=== PATIENT | female | born 1975 | race Caucasian/White ===

== ENCOUNTER 2017-04-28 14:55 | Emergency (ER) | payer MEDICARE, MEDICAID ==
[~2017-04-28] VITALS: Ht 162.6 cm; Wt 100.0 kg
[~2017-04-28 14:55] MED LIST: ATI1T PO; DIPH-423 PO; GABA300C PO; LITH150C8 PO; LURA60TA2 PO; NICO-687 TD; PANT-47 PO; PRAZ1CAP5 PO; TRAZ150T78 PO
[2017-04-28] MEDS ORDERED: ondansetron 4mg rapidly disintigrating tab PO STA (15:08)
[2017-04-28] MEDS ORDERED: LIDOcaine Viscous 15ml cup PO ONE (15:10)
[2017-04-28] MEDS ORDERED: sucralfate 1 gm tablet PO ONE (15:10)
[2017-04-28] MEDS ORDERED: mag hydrox/Alum hydrox/simeth 30ml oral suspension PO ONE (15:10)
[2017-04-28 15:30] LABS: BASOPHILS # (AUTO) 0.1 X10'3 (0-0.2); BASOPHILS % (AUTO) 0.6 % (0-1); EOSINOPHILS # (AUTO) 0.2 X10'3 (0-0.9); EOSINOPHILS % (AUTO) 1.2 % (0-6); HEMATOCRIT 44.1 % (35.0-45.0); HEMOGLOBIN 15.3 g/dl (12.0-16.0); LYMPHOCYTES # (AUTO) 2.5 X10'3 (1.1-4.8); LYMPHOCYTES % (AUTO) 18.9 % (21-51); MEAN CORPUSCULAR HEMOGLOBIN 32.4 PG (27.0-31.0); MEAN CORPUSCULAR HGB CONC 34.7 % (33.0-36.5); MEAN CORPUSCULAR VOLUME 93.4 FL (78-98); MEAN PLATELET VOLUME 7.5 FL (7.4-10.4); MONOCYTES # (AUTO) 1.3 X10'3 (0-0.9); MONOCYTES % (AUTO) 9.6 % (2-12); NEUTROPHILS # (AUTO) 9.1 X10'3 (1.8-7.7); NEUTROPHILS % (AUTO) 69.7 % (42-75); PLATELET COUNT 316 X10'3 (140-440); RED BLOOD COUNT 4.72 X10'6 (4.20-5.60); RED CELL DISTRIBUTION WIDTH 15.3 % (11.5-14.5); WHITE BLOOD COUNT 13.1 X10'3 (4.5-11.0)
[2017-04-28 15:33] LABS: CLARITY,URINE CLEAR (Clear); COLOR,URINE STRAW (Yellow); GLUCOSE, URINE NEGATIVE (Neg); KETONES,URINE NEGATIVE (Neg); LEUKOCYTE ESTERASE ,URINE NEGATIVE (Neg); NITRITES, URINE NEGATIVE (Neg); OCCULT BLOOD,URINE NEGATIVE (Neg); PROTEIN,URINE NEGATIVE (Neg); UROBILINOGEN,URINE 0.2 E.U/dL (0.2-1.0)
[2017-04-28 15:36] LABS: UA COLLECTION TYPE CLN CATCH MIDSTREAM
[2017-04-28 15:46] LABS: ALANINE AMINOTRANSFERASE 18 U/L (12-78); ALBUMIN 3.8 G/DL (3.4-5.0); ALKALINE PHOSPHATASE 119 IU/L (46-116); ANION GAP 11 (8-16); ASPARTATE AMINO TRANSFERASE 14 U/L (10-37); BILIRUBIN,TOTAL 0.4 MG/DL (0.1-1.0); BLOOD UREA NITROGEN 6 MG/DL (7-18); CALCIUM 8.9 MG/DL (8.5-10.1); CHLORIDE 100 MMOL/L (99-107); GLUCOSE 86 MG/DL (70-104); POTASSIUM 3.6 MMOL/L (3.5-5.1); SODIUM 135 MMOL/L (135-145); TOTAL CARBON DIOXIDE 23.6 MMOL/L (24-32); TOTAL PROTEIN 7.8 G/DL (6.4-8.2); eGFR > 90 ML/MIN
[2017-04-28] MEDS ORDERED: FAMO40TA73 PO (16:11)
[2017-04-28 16:16] VITALS: BP 134/82
== END 2017-04-28 16:17 | disposition home or self-care (01) ==
LOC: ER 14:56
DX: K29.70 Gastritis, unspecified, without bleeding (principal); E78.00 Pure hypercholesterolemia, unspecified; I10 Essential (primary) hypertension; G89.29 Other chronic pain; J44.9 Chronic obstructive pulmonary disease, unspecified; K21.9 Gastro-esophageal reflux disease without esophagitis; Z88.5 Allergy status to narcotic agent; Z98.890 Other specified postprocedural states
CPT/HCPCS: 36415; 80053; 81003; 85025; 99284

== ENCOUNTER 2018-12-17 17:15 | Emergency (ER) | payer MEDICAID, MEDICARE ==
[~2018-12-17] VITALS: Ht 162.6 cm; Wt 109.1 kg
[~2018-12-17 17:15] MED LIST changes: +FAMO40TA73 PO
[2018-12-17 18:21] VITALS: BP 146/83
== END 2018-12-17 18:11 | disposition home or self-care (01) ==
LOC: ER 17:16
DX: S60.452A Superficial foreign body of right middle finger, initial encounter (principal); E78.00 Pure hypercholesterolemia, unspecified; I10 Essential (primary) hypertension; G47.30 Sleep apnea, unspecified; M19.90 Unspecified osteoarthritis, unspecified site; G89.29 Other chronic pain; F41.9 Anxiety disorder, unspecified; F31.9 Bipolar disorder, unspecified; F20.9 Schizophrenia, unspecified; J44.9 Chronic obstructive pulmonary disease, unspecified; Z88.5 Allergy status to narcotic agent; Z88.6 Allergy status to analgesic agent; Z88.8 Allergy status to other drugs, medicaments and biological substances; Z79.899 Other long term (current) drug therapy; W45.8XXA Other foreign body or object entering through skin, initial encounter; Y93.89 Activity, other specified; Y92.89 Other specified places as the place of occurrence of the external cause; Y99.8 Other external cause status
CPT/HCPCS: 99284

== ENCOUNTER 2019-01-31 18:47 | Emergency (ER) | payer MEDICARE ==
[~2019-01-31] VITALS: Ht 162.6 cm; Wt 113.6 kg
[2019-01-31 18:55] VITALS: BP 145/88
== END 2019-01-31 20:02 | disposition home or self-care (01) ==
LOC: ER 18:47
DX: S82.831A Other fracture of upper and lower end of right fibula, initial encounter for closed fracture (principal); E78.00 Pure hypercholesterolemia, unspecified; I10 Essential (primary) hypertension; G47.30 Sleep apnea, unspecified; M19.90 Unspecified osteoarthritis, unspecified site; G89.29 Other chronic pain; F41.9 Anxiety disorder, unspecified; F31.9 Bipolar disorder, unspecified; F20.9 Schizophrenia, unspecified; J44.9 Chronic obstructive pulmonary disease, unspecified; Z88.6 Allergy status to analgesic agent; Z88.8 Allergy status to other drugs, medicaments and biological substances; Z79.899 Other long term (current) drug therapy; Z98.890 Other specified postprocedural states; X50.1XXA Overexertion from prolonged static or awkward postures, initial encounter; Y93.89 Activity, other specified; Y92.89 Other specified places as the place of occurrence of the external cause; Y99.8 Other external cause status
CPT/HCPCS: 73610; 99284

== ENCOUNTER 2019-02-17 15:17 | Outpatient (CLI) | payer MEDICARE | END 2019-02-17 15:45 | disposition home or self-care (01) | LOC: ORTHO 15:17 | PROVIDERS: ATTEND Orthopaedic Surgery | DX: S93.411D Sprain of calcaneofibular ligament of right ankle, subsequent encounter (principal); I10 Essential (primary) hypertension; F17.200 Nicotine dependence, unspecified, uncomplicated; X58.XXXD Exposure to other specified factors, subsequent encounter | CPT/HCPCS: 73610; G0463 ==

== ENCOUNTER 2019-09-06 09:27 | Emergency (ER) | payer MEDICARE, MEDICAID ==
[~2019-09-06] VITALS: Ht 162.6 cm; Wt 130.0 kg
[2019-09-06] MEDS ORDERED: normal saline 1000ML IV soln IVB ONE (10:25)
[2019-09-06] MEDS ORDERED: ondansetron/PF 4mg/2ml inj IV ONE (10:25)
[2019-09-06 10:46] LABS: BASOPHILS # (AUTO) 0.1 X10'3 (0-0.2); BASOPHILS % (AUTO) 0.7 % (0-1); EOSINOPHILS # (AUTO) 0.1 X10'3 (0-0.9); EOSINOPHILS % (AUTO) 0.8 % (0-6); HEMATOCRIT 45.1 % (35.0-45.0); HEMOGLOBIN 14.9 g/dl (12.0-16.0); LYMPHOCYTES # (AUTO) 2.5 X10'3 (1.1-4.8); LYMPHOCYTES % (AUTO) 19.5 % (21-51); MEAN CORPUSCULAR HEMOGLOBIN 30.8 PG (27.0-31.0); MEAN CORPUSCULAR VOLUME 93.3 FL (78-98); MEAN PLATELET VOLUME 7.8 FL (7.4-10.4); MONOCYTES % (AUTO) 7.8 % (2-12); NEUTROPHILS % (AUTO) 71.2 % (42-75); PLATELET COUNT 350 X10'3 (140-440); RED BLOOD COUNT 4.83 X10'6 (4.20-5.60); RED CELL DISTRIBUTION WIDTH 14.7 % (11.5-14.5); WHITE BLOOD COUNT 12.6 X10'3 (4.5-11.0)
[2019-09-06 10:57] LABS: ALANINE AMINOTRANSFERASE 21 U/L (12-78); ALBUMIN 3.6 G/DL (3.4-5.0); ALBUMIN/GLOBULIN RATIO 0.9 (1.1-1.5); ALKALINE PHOSPHATASE 123 IU/L (46-116); AMYLASE 33 U/L (25-115); ANION GAP 7 (8-16); ASPARTATE AMINO TRANSFERASE 17 U/L (10-37); BILIRUBIN,TOTAL 0.3 MG/DL (0.1-1.0); BLOOD UREA NITROGEN 5 MG/DL (7-18); CALCIUM 8.7 MG/DL (8.5-10.1); CHLORIDE 104 MMOL/L (99-107); CREATININE 0.83 MG/DL (0.40-0.90); GLUCOSE 127 MG/DL (70-104); LIPASE < 50 U/L (73-393); SODIUM 140 MMOL/L (135-145); TOTAL CARBON DIOXIDE 28.6 MMOL/L (24-32); TOTAL PROTEIN 7.4 G/DL (6.4-8.2); eGFR 74 ML/MIN
[2019-09-06] MEDS ORDERED: potassium Cl 10 mEq/100mL bag IV ONE (11:10)
[2019-09-06] MEDS ORDERED: potassium Cl 20 mEq SR tablet PO STA (11:10)
[2019-09-06] MEDS ORDERED: ONDA4TAB6 PO (11:13)
[2019-09-06 11:23] LABS: URINE HCG NEGATIVE (NEG)
[2019-09-06 12:24] VITALS: BP 125/72
== END 2019-09-06 12:25 | disposition home or self-care (01) ==
LOC: ER 09:28
DX: A08.4 Viral intestinal infection, unspecified (principal); E86.0 Dehydration; E87.6 Hypokalemia; E78.00 Pure hypercholesterolemia, unspecified; I10 Essential (primary) hypertension; M19.90 Unspecified osteoarthritis, unspecified site; G47.30 Sleep apnea, unspecified; G89.29 Other chronic pain; F31.9 Bipolar disorder, unspecified; F20.9 Schizophrenia, unspecified; Z98.890 Other specified postprocedural states; Z88.5 Allergy status to narcotic agent; Z79.899 Other long term (current) drug therapy
CPT/HCPCS: 36415; 80053; 81025; 82150; 83690; 85025; 96361; 96365; 96375; 99284; J2405; J3480; J7030

== ENCOUNTER 2023-11-09 11:41 | Emergency (ER) | payer BC, MEDICAID ==
[~2023-11-09] VITALS: Ht 162.6 cm; Wt 128.2 kg
[~2023-11-09 11:41] MED LIST changes: +LURA60TA PO; -LURA60TA2 PO; +ONDA4TAB6 PO
[2023-11-09 12:07] VITALS: BP 145/75; PULSE 80; RESP 18; TEMP 97.8; O2SAT 94
[2023-11-10] MEDS ORDERED: CYCL-1 PO (08:33)
== END 2023-11-09 14:38 | disposition left against medical advice (07) ==
LOC: ER 11:42
DX: R10.13 Epigastric pain (principal); Z88.8 Allergy status to other drugs, medicaments and biological substances; Z53.21 Procedure and treatment not carried out due to patient leaving prior to being seen by health care provider

== ENCOUNTER 2023-11-10 07:11 | Emergency (ER) | payer BC, MEDICAID ==
[~2023-11-10] VITALS: Ht 162.6 cm; Wt 127.3 kg
[2023-11-10] MEDS ORDERED: CYCL-1 PO (08:33)
[2023-11-10] MEDS: ketorolac trometh 30MG/ML vial 30 MG/ML VIAL IM ONE (08:51)
[2023-11-10] MEDS: cyclobenzaprine 10mg tablet PO ONE (08:51)
[2023-11-10 08:57] VITALS: BP 121/75; PULSE 72; RESP 16; TEMP 96.2; O2SAT 94
== END 2023-11-10 09:01 | disposition home or self-care (01) ==
LOC: ER 07:12
DX: S39.011A Strain of muscle, fascia and tendon of abdomen, initial encounter (principal); R11.0 Nausea; R51.9 Headache, unspecified; F17.200 Nicotine dependence, unspecified, uncomplicated; I10 Essential (primary) hypertension; Z88.5 Allergy status to narcotic agent; W18.2XXA Fall in (into) shower or empty bathtub, initial encounter; Y93.89 Activity, other specified; Y92.89 Other specified places as the place of occurrence of the external cause; Y99.8 Other external cause status
CPT/HCPCS: 96372; 99284; J1885

== ENCOUNTER 2024-02-05 12:34 | Emergency (ER) | payer BC, MEDICAID ==
[~2024-02-05] VITALS: Ht 162.6 cm; Wt 127.3 kg
[~2024-02-05 12:34] MED LIST changes: +CYCL-1 PO
[2024-02-05 13:19] VITALS: TEMP 96
[2024-02-05 15:09] LABS: BASOPHILS # (AUTO) 0.1 X10'3 (0-0.2); BASOPHILS % (AUTO) 0.7 % (0-1); EOSINOPHILS # (AUTO) 0.1 X10'3 (0-0.9); EOSINOPHILS % (AUTO) 1.5 % (0-6); HEMOGLOBIN 13.5 g/dl (12.0-16.0); LYMPHOCYTES # (AUTO) 1.8 X10'3 (1.1-4.8); LYMPHOCYTES % (AUTO) 20.9 % (21-51); MEAN CORPUSCULAR HEMOGLOBIN 31.4 PG (27.0-31.0); MEAN CORPUSCULAR HGB CONC 32.9 g/dL (33.0-36.5); MEAN CORPUSCULAR VOLUME 95.5 FL (78-98); MEAN PLATELET VOLUME 7.2 FL (7.4-10.4); MONOCYTES # (AUTO) 0.7 X10'3 (0-0.9); MONOCYTES % (AUTO) 8.1 % (2-12); NEUTROPHILS % (AUTO) 68.8 % (42-75); PLATELET COUNT 237 X10'3 (140-440); RED BLOOD COUNT 4.29 X10'6 (4.20-5.60); RED CELL DISTRIBUTION WIDTH 15.7 % (11.5-14.5); WHITE BLOOD COUNT 8.8 X10'3 (4.5-11.0)
[2024-02-05 15:23] LABS: ALANINE AMINOTRANSFERASE 14 U/L (12-78); ALBUMIN 3.3 G/DL (3.4-5.0); ALBUMIN/GLOBULIN RATIO 0.9 (1.1-1.5); ALKALINE PHOSPHATASE 131 IU/L (46-116); ANION GAP 2 (8-16); ASPARTATE AMINO TRANSFERASE 10 U/L (10-37); BILIRUBIN,TOTAL 0.4 MG/DL (0.1-1.0); BLOOD UREA NITROGEN 6 MG/DL (7-18); CALCIUM 8.8 MG/DL (8.5-10.1); CHLORIDE 101 MMOL/L (99-107); CREATININE 0.67 MG/DL (0.40-0.90); GLUCOSE 91 MG/DL (70-104); POTASSIUM 3.8 MMOL/L (3.5-5.1); SODIUM 138 MMOL/L (135-145); TOTAL CARBON DIOXIDE 35.5 MMOL/L (24-32); TOTAL PROTEIN 7.1 G/DL (6.4-8.2); eCRCL 88 ML/MIN; eGFR > 90 ML/MIN
[2024-02-05 15:26] LABS: BILIRUBIN,URINE NEGATIVE (Neg); CLARITY,URINE CLEAR (Clear); COLOR,URINE YELLOW (Yellow); GLUCOSE, URINE NEGATIVE (Neg); KETONES,URINE NEGATIVE (Neg); LEUKOCYTE ESTERASE ,URINE NEGATIVE (Neg); NITRITES, URINE NEGATIVE (Neg); OCCULT BLOOD,URINE NEGATIVE (Neg); PROTEIN,URINE NEGATIVE (Neg); UROBILINOGEN,URINE 0.2 E.U/dL (0.2-1.0)
[2024-02-05 15:29] LABS: UA COLLECTION TYPE OTHER
[2024-02-05 15:33] LABS: BILIRUBIN,DIRECT 0.2 MG/DL (0-0.3); PRO BRAIN NATRIURETIC PEPTIDE 135 PG/ML (0-125)
[2024-02-05] MEDS: normal saline 1000ml 1,000 ML IV SCH (16:47)
[2024-02-05] MEDS ORDERED: iohexol 350MG/ML 100ml bottle IV ONE (16:57)
[2024-02-05] MEDS ORDERED: [UNRECOGNIZED DRUG - CODE] PO (18:36)
[2024-02-05] MEDS ORDERED: SULF1TAB49 PO (18:36)
[2024-02-05] MEDS: sulfamethoxazole/trimethoprim DS (800/160mg) tablet PO ONE (19:02)
[2024-02-05] MEDS: dicloxacillin 500 MG capsule PO ONE (19:03)
[2024-02-05 19:08] VITALS: BP 160/85; PULSE 67; RESP 16; O2SAT 94
== END 2024-02-05 19:20 | disposition home or self-care (01) ==
LOC: ER 12:35
DX: L02.415 Cutaneous abscess of right lower limb (principal); L03.115 Cellulitis of right lower limb; E78.00 Pure hypercholesterolemia, unspecified; I10 Essential (primary) hypertension; G47.30 Sleep apnea, unspecified; M19.90 Unspecified osteoarthritis, unspecified site; G89.29 Other chronic pain; M54.9 Dorsalgia, unspecified; F41.9 Anxiety disorder, unspecified; F20.9 Schizophrenia, unspecified; F32.A Depression, unspecified; J44.9 Chronic obstructive pulmonary disease, unspecified; F17.200 Nicotine dependence, unspecified, uncomplicated; Z88.8 Allergy status to other drugs, medicaments and biological substances; Z88.5 Allergy status to narcotic agent; Z79.899 Other long term (current) drug therapy
CPT/HCPCS: 36415; 71045; 73706; 80048; 80076; 81003; 83880; 85025; 93005; 93971; 96360; 96361; 99285; J7030; Q9967